=== PATIENT | female | born 1960 | race Caucasian/White ===

== ENCOUNTER 2018-09-17 17:27 | Emergency (ER) | payer MEDICAID ==
[2018-09-17 17:38] VITALS: TEMP 98; O2SAT 100
[2018-09-17 18:46] VITALS: PULSE 85
--- NOTE | 2018-09-17 18:46 | ED PDOC ---
HPI: Chest Pain Time Seen by Provider: 09/17/18 18:00 Chief Complaint (Nursing): Chest Pain History Per: Patient Additional Complaint(s): Pt. states 4 days ago she woke up in the middle of the night to go to the bathroom and when she attempted to go back to sleep she began to think of all the bills she has to pay and she felt anxious. Shortly after feeling anxious she began to feel midsternal chest pain. She took deep breaths and drank a glass of water and shortly after all symptoms resolved and she was able to go back to sleep. Pt. states she informed her daughter today of what had occurred and they got into a verbal altercation and her daughter called the ambulance. Pt. states she does not want to be evaluated for her chest pain or anxiety but she did not want to upset her daughter who has a hx of bipolar so she went into the ambulance to appease her. Currently without any symptoms. Denies SOB, hemoptysis, fever, cough, SI/HI, hallucinations, abd pain, N/V, chills. Against Medical Advice - AMA Patient Left Against Medical Advice: The patient declines admission to the hospital and wishes to leave the Emergency Department. This action is against my medical advice. This decision was made with informed refusal. The patient was told that admission to the hospital is necessary. Explanation of the reasons why were discussed. The risks of leaving were explained to the patient and include, but are not limited to, worsening of known or currently unknown conditions, permanent disability and from undiagnosed or untreated conditions. The patient has the capacity to make this informed decision and understands my explanation of the current medical problem and risks of leaving. The patient voluntarily accepts these risks and signed an AMA form documenting our conversation. The patient was given the opportunity to ask questions and reconsider. The patient was encouraged to return to the Emergency Department at any time for further care. 09/17/18 1850 Pt. states all she wants is an EKG. Informed that EKG and normal VS does not completely r/o a life threatening illness. Pt. still refused medical intervention. Also states she f/u with Dr. Tapia routinely. Last visit was 2 months ago. Encouraged to stay in ED for evaluation but refused. Denies SI/HI, hallucinations, feeling depressed. Pt. did not allow me to contact her daughter. Past Medical History Reviewed: Historical Data, Nursing Documentation, Vital Signs Vital Signs: Last Vital Signs Temp 98 F 09/17/18 17:37 Pulse 103 H 09/17/18 17:37 Resp 20 09/17/18 17:37 BP 142/94 H 09/17/18 17:37 Pulse Ox 100 09/17/18 17:37 - Family History Family History: States: No Known Family Hx - Living Arrangements Living Arrangements: With Family - Social History Current smoker - smoking cessation education provided: Yes Review of Systems ROS Statement: Except As Marked, All Systems Reviewed And Found Negative Cardiovascular: Positive for: Chest Pain Physical Exam - Physical Exam Appears: Positive for: Well, Non-toxic, No Acute Distress Skin: Positive for: Normal Color, Warm. Negative for: Rash Eye Exam: Positive for: Normal appearance Cardiovascular/Chest: Positive for: Regular Rate, Rhythm. Negative for: Murmur Respiratory: Positive for: Normal Breath Sounds Gastrointestinal/Abdominal: Positive for: Soft. Negative for: Tenderness Back: Positive for: Normal Inspection Neurologic/Psych: Positive for: Alert, Oriented (x3), Mood/Affect (calm, cooperative, happy) - ECG ECG: Positive for: Interpreted By Me ECG Rhythm: Positive for: Sinus Rhythm. Negative for: ST/T Changes Rate: 85 O2 Sat by Pulse Oximetry: 100 Disposition - Clinical Impression Clinical Impression: Chest pain - Patient ED Disposition Is Patient to be Admitted: No - Disposition Disposition: Against Medical Advice Disposition Time: 18:44 Condition: FAIR Additional Instructions: RETURN TO ED IMMEDIATELY FOR FURTHER EVALUATION Instructions: Chest Pain (DC), Leaving Against Medical Advice Forms: [employer] (Vietnamese)
[2018-09-17 19:17] VITALS: BP 120/82; RESP 18
== END 2018-09-17 19:20 | disposition left against medical advice (07) ==
LOC: H.ER 17:27
DX: R07.89 Other chest pain (principal)